=== PATIENT | female | born 1960 | race Caucasian/White ===

== ENCOUNTER 2016-06-20 08:09 | Day surgery (SDC) | payer OTHER ==
[~2016-06-20] VITALS: Ht 170.2 cm; Wt 82.5 kg
[~2016-06-20 08:09] MED LIST: 0.9% Sodium Chloride 1,000 ML IV SCH; IBUP800T28 PO; LEDI1TAB PO; PHEN-683 PO; Sodium Chloride LOK Flush 10 mL Syringe IV PRN; fentaNYL-PF 50 mCg/mL 2 mL Inj IVPUSH PRN
[2016-06-20 08:22] VITALS: BP 137/85; PULSE 85; RESP 14; O2SAT 96
[2016-06-20] MEDS ORDERED: 0.9% Sodium Chloride 1,000 ML IV ONE (09:20)
[2016-06-20 09:33] VITALS: BP 102/62; PULSE 64; RESP 12; O2SAT 95
[2016-06-20 09:43] VITALS: BP 110/68; PULSE 70; RESP 12; O2SAT 95
[2016-06-20 09:53] VITALS: BP_SYST 108; BP_SYST 89; BP_DIAS 60; BP_DIAS 75; PULSE 80; PULSE 83; RESP 16; O2SAT 92
--- NOTE | 2016-06-20 14:04 | ENDO ---
[address] [address] ENDOSCOPY PROCEDURE PATIENT: ELIZABETH GUZMAN : 1960 MR#: [id number] ADMIT: 06/20/2016 JOB ID: [id number] PROCEDURE: Colonoscopy. INDICATION: Change in bowel habits. ANESTHESIA: Patient's ASA classification is two. Mallampati score is two. MEDICATIONS: 1. Versed 6 mg. 2. Fentanyl 125 mcg. INSTRUMENT USED: PCF-H190L. PREPARATION QUALITY: Good. PROCEDURE DETAILS: After informed consent was obtained, the patient was brought into the GI suite, where she was placed on oxygen via nasal cannula and monitored with continuous pulse oximeter, telemetry, and blood pressure monitoring. A time-out was performed, then she was placed in a left lateral decubitus position and medications were administered for sedation. Digital rectal exam was performed which was unremarkable. The colonoscope was then inserted into the rectum and advanced under direct visualization to the terminal ileum which was identified by the presence of the ileocecal valve and villous appearing mucosa of the terminal ileum. Once the terminal ileum was reached, the colonoscope was withdrawn back into the rectum as the mucosa and lumen were examined. In the rectum, retroflexion was performed. Following retroflexion, the remaining air in the rectum was suctioned and procedure was completed. FINDINGS: 1. Normal appearing terminal ileum. 2. Normal colon mucosa from rectum to cecum. Multiple random biopsies were obtained. 3. In the transverse colon, there was an approximately 5 mm sessile polyp that was removed with a hot snare. 4. In the sigmoid colon, there were two diminutive polyps removed with cold biopsy forceps. 5. Scattered diverticula were seen in the ascending colon. 6. Scattered diverticula were seen in the sigmoid colon. IMPRESSION: 1. Transverse colon polyp. 2. Two sigmoid polyps. 3. Scattered diverticula in the descending and sigmoid colon. RECOMMENDATIONS: 1. MiraLAX daily. 2. Fiber rich diet. 3. Avoid NSAIDs and anticoagulants for 72 hours. 4. Repeat colonoscopy pending polyp pathology results. COMPLICATIONS: None. ESTIMATED BLOOD LOSS: 5 mL.
--- NOTE | 2016-06-21 11:10 | PATH ---
SURGICAL PATHOLOGY Attending Physician:Kamille Reyes CASE STATUS: Signed Out PATIENT NAME: ELIZABETH GUZMAN PID: [id number] : 1960 DATE COLLECTED:06/20/2016 17:59 SPECIMEN: 1: Colon, Biopsy 2: Colon, Biopsy 3: Colon, Biopsy CLINICAL HISTORY: 1). RANDOM COLON BIOPSY 2). TRANSVERSE COLON POLYP 3). SIGMOID COLON POLYP X2 FINAL DIAGNOSIS: 1.RANDOM COLON BIOPSIES: FRAGMENTS OF NORMAL-APPEARING COLON MUCOSA. Negative for significant architectural distortion. Negative for significant inflammation, dysplasia and malignancy. 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 3.SIGMOID COLON POLYP: CHANGES CONSISTENT WITH SESSILE SERATED ADENOMA INVOLVING TWO BIOPSY FRAGMENTS. ICD10 CODE D12.3 GROSS DESCRIPTION: The specimen is received in three formalin filled containers labeled with the patient's name. 1). The specimen is sublabeled "random colon" and consists of multiple portions of tissue which aggregate to 0.5 x 0.5 x 0.3 CM. The specimen is entirely submitted in cassette 1A. 2). The specimen is sublabeled "transverse colon polyp" and consists of 2 portions of tissue which aggregate to 0.3-0.3 x 0.2 CM. The specimen is entirely submitted in cassette 2A. 3). The specimen is sublabeled "sigmoid colon polyp" and consists of 3 portions of tissue which aggregate to 0.3-0.3 x 0.3 CM. The specimen is entirely submitted in cassette 3A. 06/20/2016 [facility] MICRO DESCRIPTION: See diagnosis. ICD-9 CODES: CPT CODES: 1: 20719 2: 62917 3: 82016 Electronically Signed Out Alfredo Taylor MD [facility] Pathology [facility] [place] [address] Technical component performed at [facility], [facility] [address], [place], [address]
== END 2016-06-20 23:59 | disposition home or self-care (01) ==
LOC: MERGE 08:09 → END 08:09
PROVIDERS: ATTEND Internal Medicine Gastroenterology
DX: D12.3 Benign neoplasm of transverse colon (principal); D12.5 Benign neoplasm of sigmoid colon; K57.30 Diverticulosis of large intestine without perforation or abscess without bleeding; R19.4 Change in bowel habit; Z87.891 Personal history of nicotine dependence
CPT/HCPCS: 45380; 45385; G0500; J2250; J3010; J7030